=== PATIENT | male | born 1960 | race Caucasian/White ===

== ENCOUNTER 2022-04-15 07:13 | Outpatient (REF) | payer BC, SELFPAY ==
[2022-04-15 11:08] LABS: MANUAL DIFF FLAG NO
[2022-04-15 11:16] LABS: Basophils Percent Auto 0.9 % (0-2); Eosinophils Absolute Auto 0.1 X10*3/uL (0.0-0.4); Eosinophils Percent Auto 3.2 % (0-4); Hematocrit 46.9 % (42.0-52.0); Hemoglobin 15.5 g/dl (14.0-18.0); Imm Gran Abs Auto 0.01 X10*3/uL (0.00-0.03); Imm Gran Pct Auto 0.2 % (0.0-0.4); Lymphocytes Absolute Auto 1.3 X10*3/uL (1.2-4.9); Lymphocytes Percent Auto 29.4 % (20-40); Mean Corpuscular Hemoglobin 30.9 pg (27.0-33.0); Mean Corpuscular Volume 93.4 fL (80.0-98.0); Mean Platelet Volume 9.5 fL (9.4-12.4); Monocytes Absolute Auto 0.4 X10*3/uL (0.1-1.2); Monocytes Percent Auto 8.3 % (2-11); Neutrophils Absolute Auto 2.5 x10*3/uL (2.0-8.3); Platelet Count 248 X10*3/uL (160-400); Red Blood Count 5.02 X10*6/uL (4.60-5.80); Red Cell Distribution Width 12.9 % (11.0-16.0); White Blood Count 4.4 X10*3/uL (4.8-10.8)
[2022-04-15 11:36] LABS: Estimated Average Glucose 114 mg/dL; Hemoglobin A1C 151.9085 umol/L; Hemoglobin A1c % 5.6 %
[2022-04-15 11:49] LABS: Syphilis Screen Nonreactive (Nonreactive)
[2022-04-15 11:54] LABS: Alanine Aminotransferase 14 U/L (0-40); Albumin Level 4.1 g/dL (3.5-5.0); Alkaline Phosphatase 54 U/L (39-117); Anion Gap 15 (12-20); Aspartate Amino Transferase 17 U/L (5-37); Blood Urea Nitrogen 25 mg/dL (9-16); Calcium 8.6 mg/dL (8.4-10.2); Carbon Dioxide 21 mmol/L (22-29); Chloride 108 mmol/L (96-108); Cholesterol 203 mg/dL; Estimated Glomerular Filt Rate > 60; Glucose Fasting 116 mg/dL (60-99); HDL Cholesterol 55 mg/dL; LDL Cholesterol Calculated 133 mg/dl; Potassium 4.5 mmol/L (3.3-5.1); Sodium 139 mmol/L (135-145); Total Protein 6.8 g/dL (6.5-8.0); Triglycerides 79 mg/dL
[2022-04-15 12:01] LABS: HBS Num1 231.68 mIU/mL (0-7.99); HBc Num1 0.05 S/CO (0.00-0.79); HBsAGNum1 0.19 S/CO (0.00-0.99); HIV AB/AG Nonreactive (Nonreactive); HIV Num 1 0.12 S/CO (0.00-0.99); Hepatitis B Core Antibody Nonreactive (Nonreactive); Hepatitis B Surface Antigen Negative (Negative); Prostate Specific Antigen Scr 1.05 ng/mL (<0.05-4.0); TSH reflex Free T4 1.07 uIU/mL (0.32-4.0); ~HepC Num1 0.07 S/CO (0.00-0.79); ~Hepatitis B Surface Antibody REACTIVE (Nonreactive); ~Hepatitis C Antibody Nonreactive (Nonreactive)
== END 2022-04-15 07:14 | disposition home or self-care (01) ==
LOC: HO.WFDLDS 07:13
PROVIDERS: Visit Provider Family Medicine
DX: Z00.00 Encounter for general adult medical examination without abnormal findings (principal); Z12.5 Encounter for screening for malignant neoplasm of prostate; Z11.3 Encounter for screening for infections with a predominantly sexual mode of transmission; Z11.4 Encounter for screening for human immunodeficiency virus [HIV]; R73.01 Impaired fasting glucose
CPT/HCPCS: 36415; 80053; 80061; 83036; 84153; 84443; 85025; 86704; 86706; 86780; 86803; 87340; 87389

== ENCOUNTER → 2022-11-23 14:32 | Outpatient (BNVA) | payer BC, SELFPAY | PROVIDERS: PCP Family Medicine; Referring Provider Family Medicine; Visit Provider Internal Medicine | DX: R55 Syncope and collapse (principal) | CPT/HCPCS: 93005 ==

== ENCOUNTER 2022-12-14 09:49 | Outpatient (REF) | payer BC, SELFPAY ==
--- NOTE | ~2022-12-14 | CT_ITS ---
CT ANGIOGRAM NECK WITH IV CONTRAST CLINICAL INFORMATION: Occlusion and stenosis of the carotid arteries bilaterally. COMPARISON: None available. TECHNIQUE: Helical imaging was performed in the axial plane from the thoracic inlet to the base following the administration of 70 mL of Omnipaque 350 intravenous contrast without complication. The data was processed at the industrial technologist workstation for generation of MIP sequences. Angled MIPs and volume rendered reformatted images were also generated at an offline 3D workstation under concurrent supervision. Stenoses are assessed in accordance with NASCET criteria unless otherwise indicated. This CT examination was performed using dose optimization techniques as appropriate, variously including the following: *Automated exposure control *Adjustment of mA and/or kV according to patient size (this includes techniques or standardized protocols for targeted exams where dose is matched to indication/reason for exam; i.e. extremities or head) *Use of iterative reconstruction technique FINDINGS: Partially imaged likely partially calcified developmental venous anomaly involving the right basal ganglia incorporated into the right internal cerebral vein. A second area of enhancement within the right thalamus may reflect a DVA within associated capillary telangiectasia or other vascular malformation. A MRA of the head with and without IV contrast would be helpful in excluding the less likely possibility of an underlying high flow vascular malformation. There is multilevel cervical spondylosis. Imaged upper lungs are clear. No significant soft tissue findings within the neck. [There is a classic 3 vessel configuration of the aortic arch. Proximal arch vessels are non-stenotic. Left vertebral artery is dominant. No significant ostial stenosis is visualized on either side. Both vertebral arteries are widely patent throughout their extracranial cervical course. Both common carotid arteries are normal in course and caliber.] Mild atherosclerotic calcification involving the right carotid bulb. The proximal internal carotid arteries are widely patent. The distal internal carotid arteries are tortuous and remain widely patent. The intradural right vertebral artery ends as the PICA. CT/CT angio neck IMPRESSION: - Partially imaged likely partially calcified developmental venous anomaly involving the right basal ganglia incorporated into the right internal cerebral vein. A second area of enhancement within the right thalamus may reflect a DVA within associated capillary telangiectasia or other vascular malformation. A MRA of the head with and without IV contrast would be helpful in excluding the less likely possibility of an underlying high flow vascular malformation. - No significant arterial stenoses within the neck. The carotid bifurcations are widely patent.
[2022-12-14] MEDS: iohexoL 350 MG/ML 100 ML INFUS..BTL IV (10:29)
[2022-12-15 11:14] LABS: Creatinine POC 1.1 mg/dL (0.5-1.4); GFR POC > 60
== END 2022-12-14 09:50 | disposition home or self-care (01) ==
LOC: HO.CT 09:49
PROVIDERS: PCP Family Medicine; Visit Provider Internal Medicine
DX: I65.23 Occlusion and stenosis of bilateral carotid arteries (principal); R55 Syncope and collapse
CPT/HCPCS: 70498; 82565; Q9967

== ENCOUNTER 2023-11-02 10:58 | Outpatient (AMB) | payer BC, SELFPAY ==
[2023-11-02 11:00] VITALS: BP 140/82; PULSE 75; O2SAT 98
--- NOTE | 2023-11-02 11:00 | MHC.PC.OV ---
Vital Signs 11/02/23 11:00 Height 5 ft 9 in Weight 203 lb 2 oz BMI 30.0 BP 140/82 H Blood Pressure Location Lt brachial Position Sitting Pulse 75 Pulse Source Pulse Oximeter Pulse Oximetry (%) 98 Oxygen Delivery Method Room Air Intake Visit Reasons: PE Intake Note: Pt presents to the office today for a physical exam. Pt states he is having some right arm pain and tingling that started about a month ago but he states he did have issues with his right shoulder/arm in the past which he was diagnosed with a pinched nerve years ago. Allergies No Known Allergies Allergy (Verified 11/02/23 11:03) Tobacco use date assessed: 11/02/23 Dental Screening Dental Screen Date: 11/02/23 Did you have a dental visit in the last 12 months?: Yes Did you have a dental problem in the last 6 months where you did not have access to dental care?: No Was dental information given to patient?: Patient has dentist HPI PE HPI Details 62 y/o male presents today for a CPE with f/u labs and health maintenance. A1c today 11/02/23 is 6.0%. Pt has complaints of R arm pain and tingling. He denies any neck pain. Pt reports he is always walking for exercise. 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 1. Little interest or pleasure in doing things: not at all 2. Feeling down, depressed, or hopeless: not at all 3. Trouble falling or staying asleep, or sleeping too much: not at all 4. Feeling tired or having little energy: not at all 5. Poor appetite or overeating: not at all 6. Feeling bad about yourself - or that you are a failure or have let yourself or your family down: not at all 7. Trouble concentrating on things, such as reading the newspaper or watching television: not at all 8. Moving or speaking so slowly that other people could have noticed. Or the opposite - being so fidgety or restless that you have been moving around a lot more than usual: not at all 9. Thoughts that you would be better off or of hurting yourself in some way: not at all Total score: 0 Depression Screening Interpretation: Negative Depression Screening Done: Yes Source: Developed by Drs. Hemant Avilez, Earlene Thorne, Bhargav Banegas and colleagues, with an educational don from [employer]. Thrive Questionnaire Date Thrive assessed: 11/02/23 I am a: Patient What is your living situation today?: I have a steady place to live Within the past 12 months, did the food you bought not last and you didn't have the money to get more?: Never true Within the past 12 months, did you worry whether your food would run out before you got money to buy more?: Never true Do you have trouble paying for medicines?: No Do you have trouble getting transportation to medical appointments?: No Do you have trouble paying your heating and electricity bill?: No Do you have trouble taking care of your child, family member or friend?: No Do you have trouble with day-to-day activities such as bathing, preparing meals, shopping, managing finances, etc.?: No Are you currently unemployed and looking for a job?: No Are you interested in more education?: No THRIVE Score: 0 AUDIT C Alcohol Use Questionnaire (AUDIT-C) 1. How often do you have a drink containing alcohol?: 2-3 times a week 2. How many drinks containing alcohol do you have on a typical day when you are drinking?: 1 or 2 3. How often do you have six or more drinks on one occasion?: Never Total Score: 3 LEONARDO-7 AMB Questionnaire LEONARDO-7 Date LEONARDO - 7 assessed: 11/02/23 Feeling nervous, anxious, or on edge: 0 = Not at all Not being able to stop or control worryin = Not at all Worrying too much about different things: 0 = Not at all Trouble relaxin = Not at all Being so restless that it is hard to sit still: 0 = Not at all Becoming easily annoyed or irritable: 0 = Not at all Feeling afraid as if something awful might happen: 0 = Not at all Total LEONARDO-7 score (0-4 normal; 5-9 mild; 10-14 moderate; 15-21 severe): 0 Source: Developed by Drs. Hemant Avilez, Earlene Thorne, Bhargav Banegas and colleagues, with an educational don from [employer]. LEONARDO-7 Assessment Billing LEONARDO-7 Assessment Tool: LEONARDO-7 Assessment 03156 Review of Systems Const Denies chills, Denies fatigue, Denies fever(s), Denies headache(s) and Denies weakness Eyes Denies change in vision ENT Denies dizziness, Denies headache(s), Denies hearing loss, Denies nasal congestion, Denies sinus pain, Denies sinus pressure and Denies sore throat Card Denies chest pain, Denies lightheadedness, Denies dyspnea and Denies other (palpitations) Resp Denies cough, Denies dyspnea and Denies wheezing GI Denies abdominal pain, Denies melena, Denies hematochezia, Denies change in bowel habits, Denies dyspepsia and Denies nausea Denies hematuria and Denies dysuria Musc Denies abnormal gait, Denies myalgias, Denies arthralgias, Denies numbness and Denies tingling Skin/Breast Denies rash, Denies unusual bruising and Denies wounds Neuro Denies abnormal gait, Denies dizziness, Denies headache(s), Denies memory loss, Denies numbness, Denies Sensory deficit (Neuro), Denies tingling and Denies weakness Psych Denies anxiety, Denies depression and Denies memory loss Endo Denies cold intolerance, Denies fatigue, Denies heat intolerance, Denies polydipsia and Denies polyuria Raheel/Lymph Denies easy bleeding and Denies easy bruising Aller/Immun Denies wheezing Physical exam (Primary Care) Vital Signs: Last Vital Signs Pulse 75 11/02/23 11:00 BP 140/82 H 11/02/23 11:00 Pulse Ox 98 11/02/23 11:00 Oxygen Delivery Method Room Air 11/02/23 11:00 BMI result Body Mass Index 30.0 Tobacco/Smoking Status: Tobacco use Status Tobacco use date assessed 11/02/23 11/02/23 11:08 Patient Tobacco Use Status Never used Tobacco 11/02/23 11:08 e-Cigarette/Vaping Use Never Used 11/02/23 11:08 PHQ-9: PHQ-9 Score PHQ-9: Total score 0 11/02/23 11:08 Depression Screening Interpretation: Negative Thrive Assessment: Date of Thrive Assessment Date Thrive assessed 11/02/23 11/02/23 11:08 Const General: no acute distress, well developed, alert and awake Nutritional Appearance: well nourished Orientation/consciousness: patient oriented x3 HENMT Head: Yes normocephalic and Yes atraumatic Ears: hearing grossly normal bilaterally and TM's normal bilaterally General nose exam: Normal external nose present and Normal nares present Mouth: Normal oral and palatal mucosa present and moist mucous membranes Teeth and gingiva: dentition normal Throat: Yes posterior oropharynx normal Eyes General: appearance normal, both eyes and all related structures Pupils: Equal, round and reactive pupils present and Pupil accommodation reflex normal EOM: EOMs intact bilaterally Neck Neck: Yes normal visual inspection, Yes no lymphadenopathy and Yes trachea midline Thyroid: Thyroid normal Carotids: no bruits Lymphatic: no lymphadenopathy noted Chest Chest palpation & inspection: normal inspection of the chest Resp Effort & Inspection: normal respiratory effort Auscultation: clear to auscultation bilaterally Cardio Rate: regular rate Rhythm: regular rhythm Heart sounds: S1 normal heart sound present, S2 normal heart sound present, no gallops, no murmurs and no rubs Bruits: no abdominal aortic bruits and no carotid bruits GI Palpation (GI): No Abdominal aortic bruit present, Soft to palpation, nontender, No hepatosplenomegaly present and No Rebound tenderness present Auscultation: normal bowel sounds General: Yes no CVA tenderness Back/Spine/Pelvis Back: no CVA tenderness Cervical Spine: cervical ROM normal and No Cervical spine tenderness Thoracic/Lumbar Spine: thoraco-lumbar ROM normal, No pain with thoraco-lumbar ROM, No thoracic spinal tenderness and No lumbar spinal tenderness Skin Lesions: no lesions Rashes: no rashes Trauma: no lacerations or abrasions Wounds: no wounds Nails: normal Neuro General: patient oriented x3 Cranial nerves: Yes Equal, round and reactive pupils present Cognition (Neuro): normal cognition Gait exam (Neuro): Normal gait present Motor exam (neuro): 5/5 motor strength present throughout Sensory Exam: No Sensory deficit (Neuro) Deep tendon reflexes (DTR's): Right patellar reflex intensity grade: 2+ and Left patellar reflex intensity grade: 2+ Extrem General: Yes normal to inspection and No edema Psych Appearance: grossly normal Affect: normal affect Attitude: cooperative Thought process: Normal thought process present Results AMB Hemoglobin A1c AMB Hemoglobin A1c 6.0 % Last Edit by Kelsey Beatty MA on 11/02/23 11:23 Results Reviewed Results Reviewed: Laboratory Last Values Hgb A1c (Clinic) 6.0 % (4.0-6.0) 11/02/23 11:22 Assessment and Plan Assessment & Plan (1) Adult general medical exam: Code(s): Z00.00 - Encounter for general adult medical examination without abnormal findings Plan: 62-year-old?male?presents?for?a?complete?physical?exam Encouraged?active?lifestyle?and?healthy?diet (2) Right arm pain: Code(s): M79.601 - Pain in right arm Plan: Right?arm?pain?with?tingling?but?no?weakness Likely?strained?muscle?tendon?with?impingement?secondary?to?swelling?as?this?developed?over?a?few?days?after?injury. Use?ice,?NSAIDs,?physical?therapy. Patient?would?like?referral?to?Ortho.??He?can?cancel?this?if?he?is?improving. (3) Screening for colon cancer: Code(s): Z12.11 - Encounter for screening for malignant neoplasm of colon Plan: H/o polyps Colonosc 2-3 yrs ago and advised?to?follow-up?in?5?years?due?to?polyp Up-to-date Follow-up[facility]at[facility]as?recommended (4) Screening for prostate cancer: Code(s): Z12.5 - Encounter for screening for malignant neoplasm of prostate Plan: Check?PSA (5) Pre-syncope: Code(s): R55 - Syncope and collapse Plan: History?of?presyncope?and?also?has?tinnitus. CTA?imaging?of?brain?is?show?calcifications?and?possible?vascular?malformations Patient?would?like?a?referral?to?neurology-ordered Orders: Orders Lipid Panel Today Z00.00 - Encounter for general adult medical examination without abnormal findings UA and rflx microscopic Today Z00.00 - Encounter for general adult medical examination without abnormal findings TSH reflex Free T4 Today Z00.00 - Encounter for general adult medical examination without abnormal findings Prostate Specific Antigen Scr Today Z12.5 - Encounter for screening for malignant neoplasm of prostate PT Evaluation and Treatment Today M79.601 - Pain in right arm Comprehensive [place]. Panel Fast Today Z00.00 - Encounter for general adult medical examination without abnormal findings Microalbumin, Random (w Creat) Today I10 - Essential (primary) hypertension AMB Hemoglobin A1c Today R73.03 - Prediabetes Referrals Neurology Referral H93.19 - Tinnitus, unspecified ear, R55 - Syncope and collapse, R90.89 - Other abnormal findings on diagnostic imaging of central nervous system Orthopedics Referral M79.601 - Pain in right arm Medications: New naproxen 500 mg PO BID 30 days PRN 60 tabs 0RF pain M79.601 - Pain in right arm Coding Level of Care Code Est Pt Level 4 (00877) Est Pt Prev Care 40-64y(57223) Diagnoses Adult general medical exam Z00.00 Right arm pain M79.601 Screening for colon cancer Z12.11 Screening for prostate cancer Z12.5 Pre-syncope R55 Additional Codes LEONARDO-7 Assessment Billing - LEONARDO-7 Assessment Tool: LEONARDO-7 Assessment 82810 ([id number])
== END 2023-11-02 12:24 | disposition home or self-care (01) ==
PROVIDERS: PCP Family Medicine; Visit Provider Family Medicine
DX: Z00.00 Encounter for general adult medical examination without abnormal findings (principal); M79.601 Pain in right arm; R73.03 Prediabetes; R55 Syncope and collapse; Z12.11 Encounter for screening for malignant neoplasm of colon; Z12.5 Encounter for screening for malignant neoplasm of prostate
CPT/HCPCS: 83036; 99214; 99396

== ENCOUNTER 2023-11-16 07:11 | Outpatient (REF) | payer BC, SELFPAY ==
[2023-11-16 11:50] LABS: Appearance Urine Clear; Color Urine Yellow; Glucose Urine UA Negative (Negative); Leukocyte Esterase Urine Negative (Negative); Nitrite Urine Negative (Negative); Specific Gravity - Urine 1.015 (1.005-1.025); Urine Blood Negative (Negative); Urine Ketones Negative (Negative); Urine Protein Negative (Neg-Trace)
[2023-11-16 12:12] LABS: Alanine Aminotransferase 19 U/L (0-40); Albumin Level 4.3 g/dL (3.5-5.0); Alkaline Phosphatase 67 U/L (39-117); Anion Gap 12 (12-20); Aspartate Amino Transferase 19 U/L (5-37); Bilirubin Total 1.1 mg/dL (0.0-1.0); Blood Urea Nitrogen 22 mg/dL (9-16); Calcium 9.9 mg/dL (8.4-10.2); Carbon Dioxide 24 mmol/L (22-29); Chloride 107 mmol/L (96-108); Cholesterol 254 mg/dL (<200); Estimated Glomerular Filt Rate > 60; Glucose Fasting 110 mg/dL (60-99); Glucose Random 111 mg/dL (60-115); HDL Cholesterol 67 mg/dL (>40); LDL Cholesterol Calculated 167 mg/dL (<100); Potassium 4.3 mmol/L (3.3-5.1); Sodium 139 mmol/L (135-145); Total Protein 7.3 g/dL (6.5-8.0); Triglycerides 102 mg/dL (<150)
[2023-11-16 12:17] LABS: Prostate Specific Antigen Scr 0.85 ng/mL (<0.05-4.0)
[2023-11-16 12:19] LABS: Creatinine Urine 99.62 mg/dL
[2023-11-16 12:32] LABS: TSH reflex Free T4 1.44 uIU/mL (0.32-4.0)
== END 2023-11-16 07:12 | disposition home or self-care (01) ==
LOC: HO.WFDLDS 07:11
PROVIDERS: Internal Medicine; Visit Provider Family Medicine
DX: Z00.00 Encounter for general adult medical examination without abnormal findings (principal); Z12.5 Encounter for screening for malignant neoplasm of prostate; R55 Syncope and collapse; I10 Essential (primary) hypertension
CPT/HCPCS: 36415; 80048; 80053; 80061; 81003; 82043; 82570; 84153; 84443

== ENCOUNTER 2023-12-27 07:58 | Outpatient (REF) | payer BC, SELFPAY ==
--- NOTE | ~2023-12-27 | XR_ITS ---
EXAMINATION: XR CERVICAL SPINE CLINICAL INFORMATION: Cervicalgia. COMPARISON: None available. TECHNIQUE: Frontal, odontoid and lateral views of the cervical spine were obtained. FINDINGS: There is bony demineralization. At C5-C6 through C6-C7, there is moderate to marked disc space narrowing. The remaining disc spaces are relatively well-maintained. No acute fracture or spondylolisthesis is seen. There is multi-level mild to moderate anterior endplate arthropathy, most pronounced at C4-C5 and C5-C6. The posterior elements are intact. The dens is intact. No prevertebral soft tissue swelling is seen. XR/XR cervical spine 3V IMPRESSION: 1. There is moderately severe degenerative disc disease at C5-C6, C6-C7 and C7-T1. 2. There is multi-level mild to moderate anterior endplate arthropathy.
--- NOTE | ~2023-12-27 | XR_ITS ---
EXAMINATION: XR SHOULDER, RIGHT CLINICAL INFORMATION: Pain. COMPARISON: None available. TECHNIQUE: AP neutral and scapula Y views of the right shoulder are submitted. FINDINGS: There is bony demineralization. The glenohumeral joint is intact. The acromioclavicular and coracoclavicular intervals are normal. There is very mild osteoarthritic change of the acromioclavicular joint. No fracture or dislocation is seen. No soft tissue calcification or foreign body is seen. A sclerotic bone island is seen within the greater tuberosity of the proximal right humerus. No right pneumothorax is seen. XR/XR shoulder RT min 2V IMPRESSION: 1. No fracture or dislocation is seen. 2. There is very mild osteoarthritic change of the right glenohumeral joint.
== END 2023-12-27 07:59 | disposition home or self-care (01) ==
LOC: HO.HOSX 07:58
PROVIDERS: PCP Family Medicine; Visit Provider Physical Medicine & Rehabilitation
DX: M79.601 Pain in right arm (principal); M25.511 Pain in right shoulder; M54.2 Cervicalgia
CPT/HCPCS: 72040; 73030

== ENCOUNTER 2023-12-27 07:58 | Outpatient (AMB) | payer BC, SELFPAY ==
--- NOTE | 2023-12-27 08:17 | A.OFFVIS_ITS ---
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 Patient was getting up from a futon and he heard a pop in his right shoulder about 8 years ago. He states that his pain started about 3 - 4 months ago when he was getting up from laying down and he heard a pop. Patient reports his pain moves down and he feels a tingling/burning sensation as well. Patient tried and failed taking NSAIDs/Tylenil and icing. Allergies No Known Allergies Allergy (Verified 12/27/23 08:38) Medication List - Last Reconciled 12/27/23 by Gabrielle Austin MD atorvastatin 40 mg PO BEDTIME 90 days indomethacin 50 mg PO BID PRN naproxen 500 mg PO BID PRN 30 days sildenafil 100 mg PO DAILY PRN 30 days HPI HPI Comments History of Present Illness Details 4 months ago, was in bed, trying to turn arm, then heard a pop. Stayed the same. Feels like electric socket , zapping, down to thumb. Numb on right 2nd and 1st, feels itching also. Everything seems aggravate . Cannot identify alleviating symptom. On further questioning, he has noted frequent popping of right shoulder with physical activity/work. There is pain noted with shoulder inversion. Slightly better with abduction. History of CTS, though no EMG done in past. Noted when he sleeps. 8 years ago, similar issue, felt pop and fire on trapezius and arm. Was told pulled muscle but he didn't think so. It did eventually resolve on its own. 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 Denies neck issues per se. 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 Patient was appropriately conversant and oriented. Good historian. MSK: Inspection reveals appropriate head and neck positioning. No pain with palpation over the neck musculature. Cervical ROM was full. No scapular winging. Note that during exam, he maintained that the had constant electrical sensation from right shoulder to right thumb. Therefore all maneuvers done during exam, per patient, caused all positive signs: Spurling's sign, Castillo sign, empty can sign, Speed's test. Apprehension test is negative. Relocation test is negative. Bilateral shoulder, elbow and wrist ROM WNL. No ligamentous laxity or crepitance. No increased effusion. There is no increased shoulder pain with [id number]. Strength is 5/5 in all muscle groups tested. No increased tone noted. Neurological: Neurologic examination of the upper and lower extremities was nonfocal with intact sensation, muscle stretch reflexes and without focal motordeficits . Hoffma?s negative biaterally. Babinski wa down going ilateraly. Clonuswas negative]. Gait is non-antalgic without loss of balance. Results Reviewed Results Reviewed: No previous imaging done. Shoulder and cervical spine X-rays done in the office. Independently reviewed: cspine xray showed loss of lordosis and possibly decreased disc space C5-6. shoulder xray showed AC arthrosis, possible effusion. 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 No neurologic findings on exam. However rest of exam is equivocal, with any shoulder or neck maneuver causing the same symptom per patient. Sent for shoulder xray to look for DJD and cervical xray to look for disc space loss. Xray films reviewed as above. Concern for labral tear, given history of possible frequent shoulder subluxation. He has done his own exercises at home without much relief. He unfortunately cannot afford to go to PT due to his work hours. It would be reasonable to obtain shoulder arthrogram to rule out labral tear and guide prognosis and treatment. We also considered doing an EMG to rule out CTS vs radiculopathy. Note that his pain is mostly shoulder, not neck. Discussed with patient that shoulder pathologies would not cause numbness on fingers. Assessment and plan discussed with patient, and patient was agreeable. All questions were answered thoroughly. Follow up after MR arthrogram. Gabrielle Austin MD, HUMBERTO Board Certified, [place] Board [employer] and Rehabilitation (ABPMR) Board Certified, [place] Board [employer] Electrodiagnostic [employer] (ABEM) Orders: Orders XR shoulder RT min 2V Today M25.511 - Pain in right shoulder, M79.601 - Pain in right arm XR cervical spine 3V Today M25.511 - Pain in right shoulder, M54.2 - Cervicalgia, M79.601 - Pain in right arm MR shoulder RT w con Today M25.511 - Pain in right shoulder, M79.601 - Pain in right arm, S43.439A - Superior glenoid labrum lesion of unspecified shoulder, initial encounter Coding Level of Care Code New Pt Level 4 (22185) Diagnoses Right arm pain M79.601 Acute pain of right shoulder M25.511 Chronicity: acute Degenerative superior labral jldtepzz-bj-jefvnknov (SLAP) tear of shoulder S43.439A
== END 2023-12-27 09:26 | disposition home or self-care (01) ==
PROVIDERS: PCP Family Medicine; Referring Provider Family Medicine; Visit Provider Physical Medicine & Rehabilitation
DX: M79.601 Pain in right arm (principal); M25.511 Pain in right shoulder; S43.439A Superior glenoid labrum lesion of unspecified shoulder, initial encounter
CPT/HCPCS: 99204

== ENCOUNTER 2024-02-07 12:44 | Outpatient (REF) | payer BC, SELFPAY ==
--- NOTE | ~2024-02-07 | FL_ITS ---
FLUOROSCOPIC GUIDED RIGHT SHOULDER ARTHROGRAM INDICATIONS: Right shoulder pain. Intra-articular gadolinium injection is needed prior to MRI. PROCEDURE: Risks and benefits and possible complications were discussed with the patient and the consent form was signed. The patient was placed supine on the fluoroscopy table. The right shoulder was prepped and draped in normal sterile fashion. 1% buffered lidocaine was used for anesthesia. A 22-gauge spinal needle was used to access the shoulder joint. Intra-articular position of the needle within the shoulder joint was verified using 3 cc of Omnipaque 300. A total of 10 mL of gadolinium/saline (1:200) contrast mixture was then injected into the shoulder joint. The needle was then removed and a Band-Aid was applied to the injection site. The patient tolerated the procedure well and was sent to MRI. There were no immediate complications. 2 spot images obtained demonstrate no evidence of full-thickness rotator cuff tear. Moderate arthritic changes present in the AC joint, and minimal arthritic changes present in the glenohumeral joint. There is a small amount of calcification of the posterior infraspinatus tendon at the greater tuberosity. No significant subacromial narrowing. FL/FL arthrogram shoulder RT IMPRESSION: Successful fluoroscopic guided intra-articular instillation of dilute gadolinium into the right shoulder joint. Patient will undergo subsequent right shoulder MRI. The procedure was performed by alexa Martin PA-C, and directly supervised by Dr. Ardon.
--- NOTE | ~2024-02-07 | MR_ITS ---
EXAMINATION: MR SHOULDER WITH CONTRAST, RIGHT CLINICAL INFORMATION: Right shoulder pain. Evaluate for a labral tear, rotator cuff tendon tear. COMPARISON: Right shoulder radiographs dated 12/27/2023 and fluoroscopic arthrography done earlier the same day. TECHNIQUE: MRI of the shoulder was performed following the intra-articular administration of a dilute gadolinium-containing solution (arthrogram) on a high-field scanner. FINDINGS: ROTATOR CUFF: Moderate supraspinatus and infraspinatus tendinosis. Articular surface partial tearing of the junctional fibers measuring approximately 1.2 cm in ML dimension. No full-thickness rotator cuff tendon tear. No muscle atrophy or fatty infiltration. BICEPS: Intact. CORACOACROMIAL ARCH: The undersurface of the acromion is flat with small subacromial spurs. Severe acromioclavicular osteoarthritis with a small joint effusion. LABRUM/CAPSULE: Linear contrast within the undersurface of the superior and posterosuperior labrum, consistent with a nondisplaced undersurface tear. Intact inferior joint capsule. GLENOHUMERAL JOINT/MARROW: Intact articular cartilage. No acute osseous injury. MR/MR shoulder RT w con IMPRESSION: 1. Moderate supraspinatus and infraspinatus tendinosis with articular surface partial tearing of the junctional fibers measuring 1.2 cm in ML dimension. No full-thickness rotator cuff tendon tear. 2. Severe acromioclavicular osteoarthritis with a small joint effusion and small subacromial spurs. 3. Nondisplaced undersurface tear of the superior and posterosuperior labrum.
[2024-02-07] MEDS: gadobutroL 2 ML VIAL IVPUSH (15:07)
== END 2024-02-07 12:45 | disposition home or self-care (01) ==
LOC: HO.XRAY 12:44
PROVIDERS: PCP Family Medicine; Visit Provider Physical Medicine & Rehabilitation
DX: M25.511 Pain in right shoulder (principal); M79.601 Pain in right arm; S43.439A Superior glenoid labrum lesion of unspecified shoulder, initial encounter
CPT/HCPCS: 23350; 73040; 73222; A9585

== ENCOUNTER → 2024-02-07 12:56 | Outpatient (BNV) | payer BC, SELFPAY | PROVIDERS: PCP Family Medicine; Visit Provider Physician Assistant Surgical | DX: M25.511 Pain in right shoulder (principal) | CPT/HCPCS: 23350; 73040 ==

== ENCOUNTER 2024-03-07 11:12 | Outpatient (AMB) | payer BC, SELFPAY ==
--- NOTE | 2024-03-07 11:18 | MHC.OFFVIS ---
Intake Visit Reasons: N/P Right RTC & Labral Tear Intake Note: James is a 63 year old right hand dominant male who presents today as a new patient for a evaluation for his right shoulder pain. Patient was getting up from a futon and he heard a pop in his right shoulder about 8 years ago. He states that his pain started about 3 - 4 months ago when he was getting up from laying down and he heard a pop. Patient reports his pain moves down and he feels a tingling/burning sensation as well. Patient tried and failed taking NSAIDs/Tylenol and icing. Allergies No Known Allergies Allergy (Verified 12/27/23 08:38) HPI HPI N/P Right RTC & Labral Tear: Details: James is a 63 year old right hand dominant male who presents today as a new patient for a evaluation for his right shoulder pain. Patient was getting up from a futon and he heard a pop in his right shoulder about 8 years ago. He states that his pain started about 3 - 4 months ago when he was getting up from laying down and he heard a pop. Patient reports his pain moves down and he feels a tingling/burning sensation as well. Patient tried and failed taking NSAIDs/Tylenol and icing. Patient has had symptoms such as this about a years ago. He endorses this ?nerve pain?. He describes burning and tingling extending from his anteromedial arm down into his radial arm and the radial dorsal aspect of his right hand. He denies pain. He is curious about his MRI. 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 Current occupational exposures/hazards: No Cognitive needs: No Hearing needs: No Vision needs: No Physical Exam Const General: cooperative, healthy appearing, no acute distress and well groomed Orientation/consciousness: oriented to person and oriented to place HEENT Head: Yes normal to inspection, Yes normocephalic and Yes atraumatic Eyes General: appearance normal, both eyes and all related structures Alignment and Position: alignment normal Conjunctivae: conjunctivae normal EOM: EOMs intact bilaterally Neck Neck: Yes normal visual inspection and Yes trachea midline Resp Other: No rerpiratory distress Effort & Inspection: normal respiratory effort and able to speak in complete sentences GI Other: No abdominal distension Back/Spine/Pelvis Cervical Spine: normal cervical lordosis and cervical ROM normal Skin General skin exam: no rashes or lesions noted Neuro General: oriented to person, oriented to place and gait normal Extrem Other: Right shoulder with full range of motion. All provocative tests are negative I can not reproduce pain with active and passive motion or provocative testing. Negative Spurling's 5/5 muscle strength upper extremities Results Reviewed Results Reviewed: I personally reviewed the MR images. IMPRESSION: 1. Moderate supraspinatus and infraspinatus tendinosis with articular surface partial tearing of the junctional fibers measuring 1.2 cm in ML dimension. No full-thickness rotator cuff tendon tear. 2. Severe acromioclavicular osteoarthritis with a small joint effusion and small subacromial spurs. 3. Nondisplaced undersurface tear of the superior and posterosuperior labrum. Allergies Assessment & Plan Assessment & Plan (1) Cervical radiculopathy: Code(s): M54.12 - Radiculopathy, cervical region Category: Medical Plan: This is a 63-year-old gentleman with right arm tingling and burning with an MRI showing AC joint arthritis and rotator cuff tendinosis. His shoulder exam is completely benign. His symptoms reflect cervical radiculopathy and there is no evidence of shoulder pathology. I recommend MRI of the cervical spine. Orders: Orders MR cervical spine wo con Today M54.12 - Radiculopathy, cervical region Coding Level of Care Code New Pt Level 4 (41221) Diagnoses Cervical radiculopathy M54.12
== END 2024-03-07 16:07 | disposition home or self-care (01) ==
PROVIDERS: PCP Family Medicine; Visit Provider Orthopaedic Surgery
DX: M54.12 Radiculopathy, cervical region (principal)
CPT/HCPCS: 99204

== ENCOUNTER → 2024-03-07 11:12 | Outpatient (BNVA) | payer BC, SELFPAY | PROVIDERS: PCP Family Medicine; Visit Provider Orthopaedic Surgery ==

== ENCOUNTER 2024-06-11 10:38 | Outpatient (AMB) | payer BC, SELFPAY ==
--- NOTE | 2024-06-11 11:55 | A.OFFPC_ITS ---
Vital Signs 06/11/24 11:57 Height 5 ft 9 in Weight 202 lb 2 oz BMI 29.8 BP 110/70 Blood Pressure Location Lt brachial Position Sitting Respiration 16 Pulse 61 Pulse Source Pulse Oximeter Temp 97.5 F Temp Source Tympanic Pulse Oximetry (%) 100 Oxygen Delivery Method Room Air Intake Visit Reasons: med review Intake Note: med review Allergies No Known Allergies Allergy (Verified 06/11/24 11:55) Medication List - Last Reconciled 06/11/24 by Perez Sharif MD indomethacin 50 mg PO BID PRN naproxen 500 mg PO BID PRN 30 days sildenafil 100 mg PO DAILY PRN 30 days Tobacco use date assessed: 12/14/23 Dental Screening Dental Screen Date: 12/14/23 HPI med review HPI Details 63 y/o male presents to f/u chronic [facility] itions. Saw Dr. Tamayo orthopedics 03/07/24 for R shoulder pain. MRI showed AC joint arthritis and rotator cuff tendinosis. Shoulder exam was benign. Symptoms reflected cervical radiculopathy and had recommended MRI of cervical spine. Lipids had been high from labs drawn in October - TC 254, LDL 167, HDL 67. Hx of carotid atherosclerosis and had started him on artovastatin 40mg daily. Pt had stopped artovastatin. Had referred pt to Neurology due to presyncope. Has complaints of fungal infection of skin. 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 Hematn Avilez, Earlene Thorne, Bhargav Banegas and colleagues, with an educational don from [employer]. Review of Systems Const Denies chills, Denies fatigue, Denies fever(s), Denies headache(s) and Denies weakness ENT Denies dizziness and Denies headache(s) Card Denies dyspnea Resp Denies cough, Denies dyspnea, Denies wheezing and Denies other (shortness of breath) Musc Denies numbness and Denies tingling Neuro Denies dizziness, Denies headache(s), Denies numbness, Denies tingling and Denies weakness Psych Denies anxiety and Denies depression Endo Denies fatigue Aller/Immun Denies wheezing Physical exam (Primary Care) Vital Signs: Last Vital Signs Temp 97.5 F 06/11/24 11:57 Pulse 61 06/11/24 11:57 Resp 16 06/11/24 11:57 BP 110/70 06/11/24 11:57 Pulse Ox 100 06/11/24 11:57 Oxygen Delivery Method Room Air 06/11/24 11:57 BMI result Body Mass Index 29.8 Tobacco/Smoking Status: Tobacco use Status Tobacco use date assessed 12/14/23 06/11/24 12:00 Patient Tobacco Use Status Never used Tobacco 06/11/24 12:00 e-Cigarette/Vaping Use Never Used 06/11/24 12:00 Thrive Assessment: Date of Thrive Assessment Date Thrive assessed 11/02/23 06/11/24 12:00 Const General: well developed; No acute distress Nutritional Appearance: well nourished Orientation/consciousness: patient oriented x3 [facility] Head: Yes normocephalic and Yes atraumatic Eyes General: appearance normal, both eyes and all related structures Pupils: Equal, round and reactive pupils present EOM: EOMs intact bilaterally Resp Effort & Inspection: normal respiratory effort Auscultation: clear to auscultation bilaterally Cardio Rate: regular rate Rhythm: regular rhythm Heart sounds: S1 normal heart sound present, S2 normal heart sound present, no gallops, no murmurs and no rubs Neuro General: patient oriented x3 and gait normal Cranial nerves: Yes Equal, round and reactive pupils present Psych Affect: normal affect Assessment and Plan Assessment & Plan (1) Pre-syncope: Code(s): R55 - Syncope and collapse Plan: Had?referred?patient?to?Neurology?and?cardiology. Cardiology?ordered?CTA?head?and?neck No?significant?stenoses?of?carotid?or?basilar?system?but?did?note intracerebral?deficits - see?below (2) Right shoulder pain: Code(s): M25.511 - Pain in right shoulder Qualifiers: Chronicity: acute Qualified Code(s): M25.511 - Pain in right shoulder Plan: Right?shoulder?pain?with?right?arm?paresthesia MRI?of?shoulder?joint?shows?osteoarthritis?but?no?explanation?for?paresthesias However,?CTA?shows?some?intracerebral?abnormalities?including?in?the?thalamus (though?appears?to?be?right?thalamus?which?would?result?in?a?left- sided?symptoms). Had?referred?patient?to?Neurology?and?also?vascular?surgery (3) Paresthesia of right arm: Code(s): R20.2 - Paresthesia of skin Plan: As?above (4) Hyperlipidemia: Code(s): E78.5 - Hyperlipidemia, unspecified Plan: History?of?hyperlipidemia?and CTA?shows?intracerebral?vascular?deficits Had?started?patient?on?a?statin?but?patient?has?stopped Will?try?pravastatin?and?hopefully?he?will?tolerate?this. Also?discuss?that?we?could?try?Zetia?though?it?tends?to?not?be?as?strong?as?stat in?medications. Also?discussed?we?could?try?a?combination?of?the?two. 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 A second area of enhancement within the right thalamus may reflect a DVA within associated capillary telangiectasia or other vascular malformation. A MRA of the head with and without IV contrast would be helpful in excluding the less likely possibility of an underlying high flow vascular malformation. Coding Level of Care Code Est Pt Level 4 (52381) Diagnoses Pre-syncope R55 Acute pain of right shoulder M25.511 Chronicity: acute Paresthesia of right arm R20.2 Hyperlipidemia E78.5 Fungal infection of skin B36.9
[2024-06-11 11:57] VITALS: BP 110/70; PULSE 61; RESP 16; TEMP 36.4; O2SAT 100; BMI 29.8
== END 2024-06-11 12:57 | disposition home or self-care (01) ==
PROVIDERS: PCP Family Medicine; Visit Provider Family Medicine
DX: R55 Syncope and collapse (principal); M25.511 Pain in right shoulder; R20.2 Paresthesia of skin; E78.5 Hyperlipidemia, unspecified; B36.9 Superficial mycosis, unspecified

== ENCOUNTER → 2024-06-11 10:38 | Outpatient (BNVA) | payer BC, SELFPAY | PROVIDERS: PCP Family Medicine; Visit Provider Family Medicine | DX: R55 Syncope and collapse (principal); M25.511 Pain in right shoulder; R20.2 Paresthesia of skin; E78.5 Hyperlipidemia, unspecified; B36.9 Superficial mycosis, unspecified ==

== ENCOUNTER 2025-04-18 12:52 | Outpatient (AMB) | payer BC, SELFPAY ==
--- NOTE | 2025-04-18 12:54 | A.OFFPC_ITS ---
Vital Signs 04/18/25 12:59 Height 5 ft 9 in Weight 196 lb 4 oz BMI 29.0 BP 140/78 H Blood Pressure Location Lt brachial Position Sitting Respiration 13 Pulse 86 Pulse Source Pulse Oximeter Temp 97.5 F Temp Source Oral Pulse Oximetry (%) 96 Oxygen Delivery Method Room Air Intake Visit Reasons: Hand puncture Intake Note: Patient here for a tetanus shot. 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 Allergies No Known Allergies Allergy (Verified 04/18/25 13:21) Medication List - Last Reconciled 04/18/25 by TYLER Carolina-VALDO indomethacin 50 mg PO BID PRN 30 days naproxen 500 mg PO BID PRN 30 days pravastatin 20 mg PO BEDTIME 90 days sildenafil 100 mg PO DAILY PRN 30 days terbinafine HCl 1% (Antifungal (terbinafine)) 1 appl topical BID 14 days Tobacco use date assessed: 04/18/25 Dental Screening Dental Screen Date: 04/18/25 Did you have a dental visit in the last 12 months?: Yes Did you have a dental problem in the last 6 months where you did not have access to dental care?: No Was dental information given to patient?: Patient has dentist HPI HPI Comments History of Present Illness Details History of Present Illness - The patient is a 64-year-old male pres enting with tetanus vaccination status update following a L hand injury. - Hand puncture injury occurred earlier this week with no significant bleeding. - Landed on reciept ratliff; caused break in skin but no other injury. - Tetanus immunization last updated in . - No current impairment of hand function or notable symptoms. - No fever, chills, or signs of infectio n reported. Review of Systems - Musculoskeletal: Denies impairment of hand function. - Immunological: Reports overdue for tet anus vaccination. Physical Exam L palmar surface scabbed superficial puncture wound w/o infection. L hand neurovasc intact. Discussion Notes During the consultation, I discussed with the patient the need for updating his tetanus vaccination, given that his last vaccination was over 10 years ago, in 2011. The importance of receiving the tetanus booster was emphasized to maintain immunity, particularly given his recent hand injury with potential exposure to the bacterium. I informed him of the expected brief discomfort associated with the injection. T he recommendation was to administer the vaccine in his dominant arm to facilitate dispersion of the medication through muscle movement, minimizing soreness. Follow-up with his regular physician, Dr. Jimenez, was confirmed for annual check-ups. Patient was given time to ask questions. All questions were answered to their satisfaction. Assessment and Plan 1. Hand injury: - Administer tdap today - RTO edu provided. Patient Instructions - Receive the tetanus booster shot in yo ur right arm today. - Move your arm around to help the medic ine work and reduce soreness. - Keep track of future injuries and upda te vaccinations as needed. - Continue annual check-ups with Dr. Jimenez. Consent Patient was informed and verbally consented to the use of an ambient scribe for clinic note documentation during this visit. 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 1. Little interest or pleasure in doing things: not at all 2. Feeling down, depressed, or hopeless: not at all 3. Trouble falling or staying asleep, or sleeping too much: not at all 4. Feeling tired or having little energy: not at all 5. Poor appetite or overeating: not at all 6. Feeling bad about yourself - or that you are a failure or have let yourself or your family down: not at all 7. Trouble concentrating on things, such as reading the newspaper or watching television: not at all 8. Moving or speaking so slowly that other people could have noticed. Or the opposite - being so fidgety or restless that you have been moving around a lot more than usual: not at all 9. Thoughts that you would be better off or of hurting yourself in some way: not at all Total score: 0 Depression Screening Interpretation: Negative Depression Screening Done: Yes 23466 - PHQ-9 Billing: Yes Source: Developed by Drs. Hemant Avilez, Earlene Thorne, Bhargav Banegas and colleagues, with an educational don from [employer]. Thrive Questionnaire Date Thrive assessed: 04/18/25 I am a: Patient What is your living situation today?: I have a steady place to live Within the past 12 months, did the food you bought not last and you didn't have the money to get more?: Never true Within the past 12 months, did you worry whether your food would run out before you got money to buy more?: Never true Do you have trouble paying for medicines?: No Do you have trouble getting transportation to medical appointments?: No Do you have trouble paying your heating and electricity bill?: No Do you have trouble taking care of your child, family member or friend?: No Do you have trouble with day-to-day activities such as bathing, preparing meals, shopping, managing finances, etc.?: No Are you currently unemployed and looking for a job?: No Are you interested in more education?: No THRIVE Score: 0 AUDIT C Alcohol Use Questionnaire (AUDIT-C) 1. How often do you have a drink containing alcohol?: Never 3. How often do you have six or more drinks on one occasion?: Never Total Score: 0 Score Reviewed/Action Taken: Yes LEONARDO-7 AMB Questionnaire LEONARDO-7 Date LEONARDO - 7 assessed: 04/18/25 Feeling nervous, anxious, or on edge: 0 = Not at all Not being able to stop or control worryin = Not at all Worrying too much about different things: 0 = Not at all Trouble relaxin = Not at all Being so restless that it is hard to sit still: 0 = Not at all Becoming easily annoyed or irritable: 0 = Not at all Feeling afraid as if something awful might happen: 0 = Not at all Total LEONARDO-7 score (0-4 normal; 5-9 mild; 10-14 moderate; 15-21 severe): 0 Source: Developed by Drs. Hemant Avilez, Earlene Thorne, Bhargav Banegas and colleagues, with an educational don from [employer]. LEONARDO-7 Assessment Billing LEONARDO-7 Assessment Tool: LEONARDO-7 Assessment 20144 Physical exam (Primary Care) Vital Signs: Last Vital Signs Temp 97.5 F 04/18/25 12:59 Pulse 86 04/18/25 12:59 Resp 13 04/18/25 12:59 BP 140/78 H 04/18/25 12:59 Pulse Ox 96 04/18/25 12:59 Oxygen Delivery Method Room Air 04/18/25 12:59 BMI result Body Mass Index 29.0 Tobacco/Smoking Status: Tobacco use Status Tobacco use date assessed 04/18/25 04/18/25 13:00 Patient Tobacco Use Status Never used Tobacco 04/18/25 13:00 e-Cigarette/Vaping Use Never Used 04/18/25 13:00 PHQ-9: PHQ-9 Score PHQ-9: Total score 0 04/18/25 13:27 Depression Screening Interpretation: Negative Thrive Assessment: Date of Thrive Assessment Date Thrive assessed 04/18/25 04/18/25 13:00 Immunizations Boostrix Tdap 2.5 Lf unit-8 mcg-5 Lf/0.5 mL intramuscular syringe Performing Provider: RUFUS [place] [facility] Administered by: Marilee Rich MA on 04/18/25 13:32 Dose Route Admin Location Dispensed Lot Number Expiration Date [facility] Accident Investigator 0.5 mL IM Right Deltoid 0.5 mL [id number] 11/08/26 76774-053-21 [employer] Total Dispensed Waste 0.5 mL 0 % VIS Given Date VIS Provided VIS Publication Date 04/18/25 Single Vaccine 21 Eligibility Eligibility Date Funding Source Not [facility] [place] Eligible 04/18/25 Private Coding Level of Care Code Est Pt Level 3 (47342) Complex EM visit Add On G2211 Diagnoses Need for Tdap vaccination Z23 Injury of left hand, initial encounter S69.92XA Encounter type: initial encounter Laterality: left Additional Codes LEONARDO-7 Assessment Billing - LEONARDO-7 Assessment Tool: LEONARDO-7 Assessment [id number] ([id number]) PHQ-9 - 67845 - PHQ-9 Billing: Yes ([id number]) Assessment & Plan Assessment & Plan (1) Need for Tdap vaccination: Code(s): Z23 - Encounter for immunization Category: Medical (2) Hand injury: Code(s): S69.90XA - Unspecified injury of unspecified wrist, hand and finger(s), initial encounter Qualifiers: Encounter type: initial encounter Laterality: left Qualified Code(s): S69.92XA - Unspecified injury of left wrist, hand and finger(s), initial encounter Plan . Orders: Orders TDaP Immunization Today Z23 - Encounter for immunization
--- OUTSIDE RECORDS SUMMARY | 2025-04-18 12:54 | XMS_ITS | Encounter Summary ---
Author Organization [facility] Address [address] [facility] [address] [place] [address] Phone Care Team Providers Care Key Account Director Name Role Phone Anibal Barrow MD Primary Care Provider [phone] Anibal Barrow MD Unavailable [phone] Daniel Yeager MD Primary Care Provider [phone] Encounter Details Date Type Department Care Team (Late st Contact Info) Description 10/11/2019 Documentation [facility] [place] Internal Medicine [address] [place] [address] Jose Guadalupe Armstrong [place] [address] [place] [address] Social History Tobacco Use Types Packs/Day Years Used Date Smoking Tobacco: Never Assessed Sex and Gender Information Value Date Recorded Sex Assigned at Not on file Legal Sex Male 9:46 PM EDT Gender Identity Not on file Sexual Orientation Not on file documented as of this encounter Plan of Treatment Not on file documented as of this encounter Procedures Procedure Name Priority Date/Time Associated Diagnosis Comments OUTSIDE TRIGLYCERIDES Routine 02/16/2017 OUTSIDE LDL Routine 02/16/2017 OUTSIDE TOTAL CHOLESTEROL Routine 02/16/2017 OUTSIDE HDL Routine 02/16/2017 documented in this encounter Results * Outside LDL (02/16/2017) LDL - External 178 50 - 250 mg/ml us Historical Provider LAB BLOOD ORDERABLES Mia l Result * (ABNORMAL) Outside Total Cholesterol (02/16/2017) Cholesterol, total - External 266(A) 0 - 240 mg/dL Result [facility] Provider MD LAB BLOOD ORDERABLES Mia l Result * Outside HDL (02/16/2017) HDL - External 58 40 - 80 mg/dL Result [facility] Provider MD LAB BLOOD ORDERABLES Mia l Result * Outside Triglycerides (02/16/2017) Triglycerides - External 148 30 - 160 mg/dL Result [facility] Provider MD LAB BLOOD ORDERABLES Mia l Result documented in this encounter Visit Diagnoses Not on filedocumented in this encounter Additional Health Concerns Infection Onset Date Last Indicated Resolved Time CoV-Risk 10/04/2021 10/05/2021 10/06/2021 8:35 PM EST COVID-19 10/05/2021 10/05/2021 10/26/2021 1:22 AM EST documented as of this encounter Care Teams Key Account Director Relationship Specialty Start Date End Date Anibal Barrow MD [address] [address] [email or web address] PCP - General Internal Medicine 08/14/17 08/17/22 Daniel Yeager MD [address] [address] [email or web address] PCP - General Family Medicine 08/18/22 Anibal Barrow MD [address] [address] [email or web address] Insurance Assigned Provider 10/18/19 04/23/22 documented as of this encounter Additional Source Comments The information contained in this document represents components of the legal health record. It is not the complete legal health record.[facility]
--- OUTSIDE RECORDS SUMMARY | 2025-04-18 12:54 | XMS_ITS | Clinical Summary ---
Author Organization [employer] Address [address] [facility] 7[address] [place] [address] Care Team Providers Care Outreach Professional Name Role Phone Perez Sharif Primary Care Provider [phone] Allergies No known active allergies Medications indomethacin (Indocin) 50 MG capsule Take 50 mg by mouth with breakfast and with evening meal. Active Active Problems Problem Noted Date Diagnosed Date Hyperlipidemia 10/14/2019 Immunizations Immunization Administration Dates Next Due Tdap 01/06/2012 Social History Tobacco Use Types Packs/Day Years Used Date Smoking Tobacco: Former Cigarettes Smokeless Tobacco: Never Tobacco Cessation:Counseling Given: Not Answered Sex and Gender Information Value Date Recorded Sex Assigned at Male 02/19/2024 10:04 AM EDT Legal Sex Male 10:02 AM EDT Gender Identity Male 02/19/2024 10:04 AM EDT Sexual Orientation Don't know 02/19/2024 10 :04 AM EDT Last Filed Vital Signs Vital Sign Reading Time Taken Comments Blood Pressure 130/78 02/19/2024 12:13 PM EDT Pulse 88 02/19/2024 12:13 PM EDT Temperature - - Respiratory Rate 19 02/19/2024 12:13 PM EDT Oxygen Saturation 96% 02/19/2024 12:13 PM EDT Inhaled Oxygen Concentration - - Weight 90.7 kg (200 lb) 02/19/2024 12:13 PM EDT Height 177.8 cm (5' 10 ) 02/19/2024 12:13 PM EDT Body Mass Index 28.7 02/19/2024 12:13 PM EDT Plan of Treatment Health Maintenance Due Date Last Done Comments CT Colonography 1961 Colonoscopy 1961 Colorectal Cancer Screening 1961 Depression Screening 1961 FIT DNA/Cologuard 1961 FIT 1961 FOBT 1961 HIV Screening 1961 SDOH Screening 1961 Sigmoidoscopy 1961 Disability Screening 1961 Alcohol/Substance Use Screening 1973 Pneumococcal Vaccine: 50+ Years (1 of 1 - PCV) 12/04/2011 Zoster Vaccines (1 of 2) 12/04/2011 DTaP/Tdap/Td Vaccines (2 - T d or Tdap) 01/05/2022 01/06/2012 COVID-19 Vaccine (3 - 2023-2 5 season) 2024 01/13/2021, 11/28/2020 Tobacco Screening 02/18/2025 02/19/2024 Influenza Vaccine (#1) 2025 Lipid Panel 08/25/2026 08/25/2021 RSV Patients and Patients Aged 60 years or older (1 - 1-dose 75+ series) 2036 Hepatitis C Screening Completed 10/24/2019 HIB Vaccines Aged Out No longer eligi ble based on patient's age to complete this topic HPV Vaccines Aged Out No longer eligi ble based on patient's age to complete this topic Hepatitis A Vaccines Aged Out No long er eligible based on patient's age to complete this topic Hepatitis B Vaccines Aged Out No long er eligible based on patient's age to complete this topic IPV Vaccines Aged Out No longer eligi ble based on patient's age to complete this topic Meningococcal B Vaccine Aged Out No l onger eligible based on patient's age to complete this topic Meningococcal Vaccine Aged Out No jus latoya eligible based on patient's age to complete this topic RSV under 20 months Aged Out No longe r eligible based on patient's age to complete this topic Rotavirus Vaccines Aged Out No longer eligible based on patient's age to complete this topic Insurance BS HMO Care Teams Outreach Professional Relationship Specialty Start Date End Date Perez Sharif [address] [place], [place] [id number] PCP - General 02/19/24
[2025-04-18 12:59] VITALS: BP 140/78; PULSE 86; RESP 13; TEMP 36.4; O2SAT 96; BMI 29.0
== END 2025-04-18 15:25 | disposition home or self-care (01) ==
LOC: HO.HMCFM 12:52
PROVIDERS: PCP Family Medicine; Visit Provider Nurse Practitioner Family
DX: Z23 Encounter for immunization (principal); S69.92XA Unspecified injury of left wrist, hand and finger(s), initial encounter

== ENCOUNTER → 2025-04-18 12:52 | Outpatient (BNVA) | payer BC, SELFPAY | PROVIDERS: PCP Family Medicine; Visit Provider Nurse Practitioner Family | DX: S61.432A Puncture wound without foreign body of left hand, initial encounter (principal); Z23 Encounter for immunization; W26.8XXA Contact with other sharp object(s), not elsewhere classified, initial encounter; Y93.9 Activity, unspecified; Y92.9 Unspecified place or not applicable; Y99.9 Unspecified external cause status; Z13.31 Encounter for screening for depression; Z13.39 Encounter for screening examination for other mental health and behavioral disorders | CPT/HCPCS: 90471; 90715; 96127 ==

== ENCOUNTER 2025-09-05 10:17 | Outpatient (REF) | payer BC, SELFPAY ==
--- OUTSIDE RECORDS SUMMARY | 2025-09-05 13:09 | XMS_ITS | Encounter Summary ---
Author Organization [facility] Address [address] [facility] [address] [place] [address] Phone Care Team Providers Care Funeral Assistant Name Role Phone Anibal Barrow MD Primary Care Provider [phone] Anibal Barrow MD Unavailable [phone] Daniel Yeager MD Primary Care Provider [phone] Encounter Details Date Type Department Care Team (Late st Contact Info) Description 10/11/2019 Documentation [facility] [address] [place] [address] Jose Guadalupe ArmstrongMINDEN, [place] [address] [place] [address] Social History Tobacco Use Types Packs/Day Years [...] 50 - 250 mg/ml us Historical Provider MD LAB BLOOD ORDERABLES Mia l Result * (ABNORMAL) Outside Total Cholesterol (02/16/2017) Cholesterol, total - External 266(A) 0 - 240 mg/dL Result [facility] Provider MD LAB BLOOD ORDERABLES Mia l Result * Outside HDL (02/16/2017) HDL - External 58 40 - 80 mg/dL Result [facility] Provider MD LAB BLOOD ORDERABLES Mia l Result * Outside Triglycerides (02/16/2017) Triglycerides - External 148 30 - 160 mg/dL Result [facility] Provider MD LAB BLOOD ORDERABLES Mia l Result documented in this encounter Visit Diagnoses Not on filedocumented in this encounter Additional Health Concerns Infection Onset Date Last Indicated Resolved Time CoV-Risk 10/04/2021 10/05/2021 10/06/2021 8:35 PM EST COVID-19 10/05/2021 10/05/2021 10/26/2021 1:22 AM EST documented as of this encounter Care Teams Funeral Assistant Relationship Specialty Start Date End Date Anibal Barrow MD [address] [place] [id number] [email or web address] PCP - General Internal Medicine 08/14/17 08/17/22 Daniel Yeager MD [address] [address] [email or web address] PCP - General Family Medicine 08/18/22 Anibal Barrow MD [address] [address] [email or web address] Insurance Assigned Provider 10/18/19 04/23/22 documented as of this encounter Additional Source Comments The information contained in this document represents components of the legal health record. It is not the complete legal health record.[facility]
--- OUTSIDE RECORDS SUMMARY | 2025-09-05 13:10 | XMS_ITS | Encounter Summary ---
Author Organization [facility] Address [address] [place] [address] Phone Care Team Providers Care Awake Overnight Monitor Name Role Phone Pcp, Unknown Primary Care Provider Anibal Cross MD Primary Care Provider [phone] Anibal Barrow MD Unavailable [phone] Daniel Yeager MD Primary Care Provider Encounter Details Date Type Department Care Team (Late st Contact Info) Description 07/31/2017 Procedure [facility], Ct Scan - [address] [address] Social History Tobacco Use Types Packs/Day Years Used Date Smoking Tobacco: Never Assessed Sex and Gender Information Value Date Recorded Sex Assigned at Not on file Legal Sex Male 9:46 PM EDT Gender Identity Not on file Sexual Orientation Not on file documented as of this encounter Plan of Treatment Not on file documented as of this encounter Visit Diagnoses Not on filedocumented in this encounter Additional Health Concerns Infection Onset Date Last Indicated Resolved Time CoV-Risk 10/04/2021 10/05/2021 10/06/2021 8:35 PM EST COVID-19 10/05/2021 10/05/2021 10/26/2021 1:22 AM EST documented as of this encounter Care Teams Awake Overnight Monitor Relationship Specialty Start Date End Date Pcp, Unknown PCP - General 07/31/17 08/13/17 Anibal Barrow MD [address] [place] [phone] [email or web address] PCP - General Internal Medicine 08/14/17 08/17/22 Daniel Yeager MD [address] [address] [email or web address] PCP - General Family Medicine 08/18/22 Anibal Barrow MD [address] [address] [email or web address] Insurance Assigned Provider 10/18/19 04/23/22 documented as of this encounter Additional Source Comments The information contained in this document represents components of the legal health record. It is not the complete legal health record.[facility]
--- OUTSIDE RECORDS SUMMARY | 2025-09-05 13:10 | XMS_ITS | Encounter Summary ---
Author Organization [facility] Address [address] [facility] [address] [place] [address] Phone Care Team Providers Care Sign Out Clerk Name Role Phone Pcp, Unknown Primary Care Provider Anibal Cross MD Primary Care Provider [phone] Anibal Barrow MD Unavailable [phone] Daniel Yeager MD Primary Care Provider [phone] Encounter Details Date Type Department Care Team (Late st Contact Info) Description 07/31/2017 Ancillary Orders Virtual Department [address] [place] [address] Moises Verdin MD [address] [place] [address] [email or web address] Tinnitus of left ear; Dizziness and giddiness Social History Tobacco Use Types Packs/Day Years Used Date Smoking Tobacco: Never Assessed Sex and Gender Information Value Date Recorded Sex Assigned at Not on file Legal Sex Male 9:46 PM EDT Gender Identity Not on file Sexual Orientation Not on file documented as of this encounter Plan of Treatment Not on file documented as of this encounter Results * CT ANGIO HEAD WITH AND WITHOUT CONTRAST (08/14/2017 12:35 PM EST) Anatomical Region Laterality Modality Neck Computed Tomogra phy 08/14/2017 12:3 0 PM EST Impressions 08/14/2017 12:43 PM EST Right-sided basal ganglia and thalamic calcifications with prominent draining vein on the right consistent with a developmental venous anomaly. Otherwise unremarkable evaluation of intracranial contents. The CTA of the neck is unremarkable. The CTA of [place] discloses findings consistent with a developmental venous anomaly as noted above. TOTAL CTDIvol: 200.60 mGy S/S: Dizziness, giddiness, tinnitus left ear, severe headaches, right basal ganglia developmental venous anomaly. POS -[id number] Narrative 08/14/2017 12:43 PM EST COMPARISON: None TECHNIQUE: Precontrast views were obtained in preparation for CT angiogram of the brain. Rapid intravenous contrast administration was then performed with multidetector CT obtained from the vertex to skull base. Rapid intravenous contrast administration was then performed with multidetector CT obtained from skull base to thoracic inlet. Multiplanar angiographic reformatted are evaluated on the workstation. FINDINGS: The unenhanced CAT scan of the brain obtained initially as part of the CTA of the neck and [place] discloses calcifications in the basal ganglia on the right including the putamen and globus pallidus as well as the thalamus and head of the caudate nucleus. No such calcifications are seen on the left. The periventricular system is of normal size and position. No extra-axial fluid collection or mass-effect is seen. No shift of midline structures is evident. No acute intracranial hemorrhage is seen. No acute infarct is noted. No significant mass-effect is seen. After contrast is given the evaluation of the vessels in the neck is unremarkable. No significant atherosclerotic plaquing or occlusive disease is seen. In the [place] the posterior circulation is notable for a dominant left vertebral artery. The right posterior cerebellar artery is fed via the anterior circulation. There is evidence of what appears to be a venous anomaly with a large draining vein on the right extending into the basal ganglia. The appearance is most consistent with a developmental venous anomaly. This corresponds well with the right-sided calcifications. The cerebellar tonsils are normally positioned. The sella turcica is unremarkable. The internal auditory canals are symmetric. There is normal aeration of the mastoid air cells. No cerebellopontine angle pathology is noted. Procedure Note Long King MD - 08/14/2017 COMPARISON: None TECHNIQUE: Precontrast views were obtained in preparation for CT angiogramof the brain. Rapid intravenous contrast administration was thenperformed with multidetector CT obtained from the vertex to skull base.Rapid intravenous contrast administration was then performed withmultidetector CT obtained from skull base to thoracic inlet. Multiplanarangiographic reformatted are evaluated on the workstation. FINDINGS: The unenhanced CAT scan of the brain obtained initially as part of the CTAof the neck and [place] discloses calcifications in the basalganglia on the right including the putamen and globus pallidus as well asthe thalamus and head of the caudate nucleus. No such calcifications areseen on the left. The periventricular system is of normal size and position. No extra-axialfluid collection or mass-effect is seen. No shift of midline structures isevident. No acute intracranial hemorrhage is seen. No acute infarct is noted. Nosignificant mass-effect is seen. After contrast is given the evaluation of the vessels in the neck isunremarkable. No significant atherosclerotic plaquing or occlusive diseaseis seen. In the [place] the posterior circulation is notable for adominant left vertebral artery. The right posterior cerebellar artery isfed via the anterior circulation. There is evidence of what appears to be a venous anomaly with a largedraining vein on the right extending into the basal ganglia. Theappearance is most consistent with a developmental venous anomaly. Thiscorresponds well with the right-sided calcifications. The cerebellar tonsils are normally positioned. The sella turcica isunremarkable. The internal auditory canals are symmetric. There is normal aeration ofthe mastoid air cells. No cerebellopontine angle pathology is noted. IMPRESSION: Right-sided basal ganglia and thalamic calcifications with prominentdraining vein on the right consistent with a developmental venousanomaly. Otherwise unremarkable evaluation of intracranial contents. The CTA of the neck is unremarkable. The CTA of [place] discloses findings consistent with adevelopmental venous anomaly as noted above. TOTAL CTDIvol: 200.60 mGy S/S: Dizziness, giddiness, tinnitus left ear, severe headaches, rightbasal ganglia developmental venous anomaly. POS -[id number] us Moises Verdin MD IMG CT HEAD/NECK Final R esult documented in this encounter Visit Diagnoses Diagnosis Tinnitus of left ear Dizziness and giddiness Tinnitus of left ear Dizziness and giddiness documented in this encounter Additional Health Concerns Infection Onset Date Last Indicated Resolved Time CoV-Risk 10/04/2021 10/05/2021 10/06/2021 8:35 PM EST COVID-19 10/05/2021 10/05/2021 10/26/2021 1:22 AM EST documented as of this encounter Care Teams Sign Out Clerk Relationship Specialty Start Date End Date Pcp, Unknown PCP - General 07/31/17 08/13/17 Anibal Barrow MD [address] [address] [email or web address] by [email or web address] PCP - General Internal Medicine 08/14/17 08/17/22 Daniel Yeager MD [address] [place] [id number] [email or web address] PCP - General Family Medicine 08/18/22 Anibal Barrow MD [address] [place] [address] [email or web address] Insurance Assigned Provider 10/18/19 04/23/22 documented as of this encounter Additional Source Comments The information contained in this document represents components of the legal health record. It is not the complete legal health record.[facility]
--- OUTSIDE RECORDS SUMMARY | 2025-09-05 13:10 | XMS_ITS | Encounter Summary ---
Author Organization [facility] Address [address] [facility] [address] [place] [address] Phone Care Team Providers Care Instructional Supervisor Name Role Phone Anibal Barrow MD Primary Care Provider [phone] Anibal Barrow MD Unavailable [phone] Daniel Yeager MD Primary Care Provider [phone] Encounter Details Date Type Department Care Team (Late st Contact Info) Description 01/18/2021 Procedure Pass [facility] Endoscopy Admitting Dept Virtual Department [address] [place] [address] Social History Tobacco Use Types Packs/Day Years Used Date Smoking Tobacco: Former Cigarettes Q uit: 1999 Smokeless Tobacco: Never Alcohol Use Standard Drinks/Week Comments Yes 0 (1 standard drink = 0.6 oz pur e alcohol) 1-2 beers per month Sex and Gender Information Value Date Recorded [...] COVID-19 10/05/2021 10/05/2021 10/26/2021 1:22 AM EST Assessment Noted Time PHQ-2 Depression Total Score: 0 05/12/20 10:46 AM EDT documented as of this encounter Care Teams Instructional Supervisor Relationship Specialty Start Date End Date Anibal Barrow MD [address] [address] PCP - General Internal Medicine 08/14/17 08/17/22 Daniel Yeager MD [address] [address] [email or web address] PCP - General Family Medicine 08/18/22 Anibal Barrow MD [address] [address] [email or web address] Insurance Assigned Provider 10/18/19 04/23/22 documented as of this encounter Additional Source Comments The information contained in this document represents components of the legal health record. It is not the complete legal health record.[facility]
--- OUTSIDE RECORDS SUMMARY | 2025-09-05 13:10 | XMS_ITS | Clinical Summary ---
Author Organization [facility] Address [address] [facility] [address] [place] [phone] Phone Care Team Providers Care Wrap Turner Name Role Phone Daniel Yeager MD Primary Care Provider [phone] Allergies No known active allergies Medications ibuprofen (ADVIL,MOTRIN) 200 MG tablet Take 400 mg by mouth every 6 (six) hours as needed for pain (specific location in comments). Active aspirin 81 MG EC tablet Take 81 mg by mouth daily. Active indomethacin (INDOCIN SR) 75 mg CR capsule Take 1 capsule (75 mg total) by mouth daily as needed (back pain). 10 capsule 1 1 Active sildenafiL (VIAGRA) 50 mg tabletIndication s:Erectile dysfunction TAKE 1 TABLET BY MOUTH EVERY DAY NEEDED 4 tablet 1 Active Active Problems Problem Noted Date Diagnosed Date Anxiety 09/02/2021 Prediabetes 11/12/2019 Family history of diabetes mellitus in father Erectile dysfunction 10/14/2019 Ejaculatory disorder 10/14/2019 Migraine with aura 10/14/2019 Overview (10/14/2019): headaches accompanied by nausea but no vomiting Hyperlipidemia 10/14/2019 Adenomatous colon polyp 10/14/2019 Umbilical hernia 10/14/2019 Carotid atherosclerosis 09/21/2016 Overview (10/14/2019): minimal right carotid atherosclerosis on ultrasound Sleep apnea Overview (02/25/2021): Seen by Dr. Alexander in the past Immunizations Immunization Administration Dates Next Due COVID-19 (Pre-07/10) Pfizer Vaccine, mRNA, PF ,11/28/2020 Tdap 01/06/2012 Family History Medical History Relation Comments Coronary artery disease Father Deep vein thrombosis Father Diabetes mellitus Father Multiple myeloma Father Coronary artery disease Mother Lung cancer Mother smoker Stroke Mother Depression Sister Obesity Sister Drug abuse Son in the past Colon cancer Neg Hx Prostate cancer Neg Hx Relation Status Comments Father (Age 72) Mother (Age 69) stroke Sister Son Social History Tobacco Use Types Packs/Day Years Used Date Smoking Tobacco: Former Cigarettes Q uit: 1999 Smokeless Tobacco: Never Alcohol Use Standard Drinks/Week Comments Yes 0 (1 standard drink = 0.6 oz pur e alcohol) 1-2 beers per month Child or Family Care Answer Date Record ed Do you have problems with on e of the following making it difficult for you to work, study, or receive health care? I choose not to answer 02/25/2021 Education Answer Date Recorded Are you interested in more education? Not on mayte e 02/28/2023 Are you concerned about learning? Not on file 02/28/2023 No 02/28/2023 No 02/28/2023 Food Answer Date Recorded Within the past 6 months we worried whether our food would run out before we got money to buy more. I choose not to answer 02/25/2021 Within the past 6 months the food we bought just didn't last and we didn't have enough money to get more. I choose not to answer 02/25/2021 Residential Stability Answer Date Recor ded What is your housing situation today? I have yaz strickland 02/25/2021 How many times have you move d in the past 12 months? I choose not to answer 02/25/2021 06 Are you worried that in t he next 2 months, you may not have your own housing to live in? I choose not to answer 02/26/20 21 Paying for Meds Answer Date Recorded Do you have trouble paying for medicines? I gonzales nelson not to answer 02/25/2021 Paying Utility Bills Answer Date Record ed Do you have trouble paying y our heating or electricity bill? I choose not to answer 02/25/2021 Transportation Answer Date Recorded Has the lack of transportati on kept you from medical appointments or from getting medications? No 02/25/2021 Unemployment Answer Date Recorded Are you currently unemployed or working on a part-time or temporary basis, and looking for work? I choose not to answer 02/25/2021 Digital Access Answer Date Recorded No 02/13/2023 No 02/13/2023 Reliable internet access at home? Not on file 02/13/2023 Device with a working camera? Not on file Sex and Gender Information Value Date Recorded Sex Assigned at Not on file Legal Sex Male 9:46 PM EDT Gender Identity Not on file Sexual Orientation Not on file Last Filed Vital Signs Vital Sign Reading Time Taken Comments Blood Pressure 110/66 09/02/2021 11:44 AM EST right arm, regular cuff Pulse 89 09/02/2021 11:44 AM EST Temperature 36 C (96.8 F) 01/18/2021 8:00 AM EDT Respiratory Rate 17 01/18/2021 8:50 AM EDT Oxygen Saturation 98% 09/02/2021 11: 44 AM EST Inhaled Oxygen Concentration - - Weight 83.9 kg (185 lb) 10/04/2021 11:0 8 AM EST Height 172.5 cm (5' 7.91 ) 02/25/2021 1 :12 PM EDT Body Mass Index 28.2 02/25/2021 1:12 PM EDT Plan of Treatment Health Maintenance Due Date Last Done Comments SMOKING Hx and SMOKELESS TOBACCO SCREENING 1974 COLOGUARD 2006 FIT TEST 2006 FOBT 2006 SIGMOIDOSCOPY 2006 VIRTUAL COLONOSCOPY 2006 PNEUMOCOCCAL VACCINES (50+ years) (1 of 1 - PCV) 12/04/2011 ZOSTER VACCINES (1 of 2) 12/04/2011 Adult Td,Tdap Booster 01/05/2022 01/06/2012 DEPRESSION SCREENING 02/25/2022 02/25/2021 LIPID PANEL 08/25/2022 08/25/2021, 1204/2021, 09/22/2020, Additional history exists INFLUENZA VACCINE (#1) 2025 COVID-19 VACCINE ( season) 2025 01/13/2021, 11/28/2020 COLONOSCOPY 01/18/2026 01/18/2021 COLORECTAL CANCER SCREENING 01/18/2026 RSV VACCINE (1 - 1-dose 75+ series) 2036 HEPATITIS C SCREENING Completed 10/24/2019, 020 HIV ONE-TIME SCREENING (18-65 YEARS) Completed 10/24/2019 HEPATITIS A VACCINES Aged Out No long er eligible based on patient's age to complete this topic HIB VACCINES Aged Out No longer eligi ble based on patient's age to complete this topic MENINGOCOCCAL VACCINES (ACWY) Aged Out No longer eligible based on patient's age to complete this topic MENINGOCOCCAL VACCINES (B) Aged Out N o longer eligible based on patient's age to complete this topic Medical Devices Not on file Procedures Procedure Name Priority Date/Time Associated Diagnosis Comments LIPID PANEL Routine 08/25/2021 7:08 AM EST Routine general medical examination at a health care facility Hyperlipidemia, unspecified hyperlipidemia type ENDOSCOPY, COLON 01/18/2021 8:10 AM EDT HEPATITIS C ANTIBODY, QUALITATIVE Routine 10/24/2019 8:49 AM EST Routine general medical examination at a health care facility from Last 3 Months or Most Recently Relevant to Health Maintenance Results * (ABNORMAL) Lipid panel (08/25/2021 7:08 AM EST) HDL 70 mg/dL [facility] Comment: Interpretation <40 mg/dL: Low HDL cholesterol (major risk factor for CHD) Greater than or equal to 60 mg/dL: High HDL cholesterol ( negative risk factor for CHD) HDL - cholesterol is affected by a number of factors, e.g. smoking, excerise, hormones, sex and age. CHOLESTEROL 246(H) 0 - 240 mg/dL [facility] TRIGLYCERIDES 84 30 - 160 mg/dL [facility] LDL 159(H) 50 - 129 mg/dL [facility] Comment: LDL levels in terms of risk for coronary heart disease: <100 mg/dL: Optimal 100-129 mg/dL: Near or above optimal 130-159 mg/dL: Borderline high 160-189 mg/dL: High >190 mg/dL: Very High CARDIAC RISK RATIO 3.5 3.4 - 5.0 C [facility] Blood 08/25/2021 7:08 AM EST 08/25/2021 7:12 AM EST us Tammy Calabrese MD LAB BLOOD BKR ORDERABLES F inal Result [facility] [address] [place] [address] * ENDOSCOPY, COLON (01/18/2021 8:10 AM EDT) Narrative Transcriptions Tammy Frankel MD - 01/18/2021 8:10 AM EDT Patient Name: James Nye Attending MD:: TAMMY FRANKEL MD Procedure Date: 01/18/2021 8:10 AM Date of : 1960 Age: 60 Admit Type: Outpatient Gender: Male Room: [facility] Referring MD: TAMMY CALABRESE MD Exam Type: Colonoscopy Indications: Surveillance: Personal history of adenomatous polypson last colonoscopy > 5 years ago, Last colonoscopy:March 2012 Medications: Monitored Anesthesia Care Procedure: Informed consent was obtained from the patient after discussion of the indications, limitations, alternatives, benefits, and risks of the procedure. Risks specifically discussed include but are not limited to medication reactions, missed lesions, bleeding, perforation, or the need for emergentsurgery. Throughout the procedure, the patient's bloodpressure, pulse, end-tidal CO2, and oxygen saturations were monitored continuously. The Olympus adult variable colonoscope [id number] #4was introduced through the anus and advanced to thececum, identified by the appendiceal orifice, ileocecalvalve and palpation. The colonoscopy was performed without difficulty. The patient tolerated the procedurewell. The quality of the bowel preparation was good. Complications: No immediate complications. Estimated blood loss: Minimal. Findings: The perianal and digital rectal examinations were normal. Pertinent negatives include normal sphincter tone. A 3 mm polyp was found in the ascending colon at 75cm proximal to the anus. The polyp was sessile. Thepolyp was removed with a piecemeal technique using a cold biopsy forceps. Resection and retrieval werecomplete. Estimated blood loss was minimal. Retroflexion in the right colon was performed. Impression: - One 3 mm polyp in the ascending colon at 75 cm proximal to the anus, removed piecemeal using a cold biopsy forceps. Resected and retrieved. Recommendation: - I will send results of your biopsy to you and your referring physician or provider. If you do notreceive notification within 3 weeks, please call ouroffice. - Repeat colonoscopy in 5 years for surveillancebased on pathology results. TAMMY FRANKEL MD 01/18/2021 8:39:06 AM This report has been signed electronically. Number of Addenda: 0 Note Initiated On: 01/18/2021 8:10 AM Procedure Code(s): --- Professional --- 27999, Colonoscopy, flexible; with biopsy, single or multiple --- Technical --- 94480, Colonoscopy, flexible; with biopsy, single or multiple Diagnosis Code(s): --- Professional --- Z86.010, Personal history of colonic polyps D12.2, Benign neoplasm of ascending colon --- Technical --- Z86.010, Personal history of colonic polyps D12.2, Benign neoplasm of ascending colon CPT copyright 2018 [employer]. All rights reserved. The codes documented in this report are preliminary and upon sight effects specialist reviewmay be revised to meet current compliance requirements. Procedure Date: 01/18/2021 8:10:[address] [place] [id number] us Tammy Calabrese MD GI PROCEDURE ORDERABLES Fi nal Result * Hepatitis C antibody, qualitative (10/24/2019 8:49 AM EST) HCV NON-REACTIV E NON-REACTI VE [facility] Blood 10/24/2019 8:49 AM EST 10/24/2019 8:57 AM EST us Tammy Calabrese MD LAB BLOOD BKR ORDERABLES F inal Result [address] [address] from Last 3 Months or Most Recently Relevant to Health Maintenance [facility] POS Care Teams Wrap Turner Relationship Specialty Start Date End Date Daniel Yeager MD [email or web address] PCP - General Family Medicine 08/18/22 Additional Source Comments The information contained in this document represents components of the legal health record. It is not the complete legal health record.[facility]
[2025-09-05 15:56] LABS: MANUAL DIFF FLAG NO
[2025-09-05 16:03] LABS: Hematocrit 47.0 % (42.0-52.0); Hemoglobin 15.7 g/dl (14.0-18.0); Imm Gran Abs Auto 0.02 X10*3/uL (0.00-0.03); Imm Gran Pct Auto 0.5 % (0.0-0.4); Lymphocytes Absolute Auto 1.1 X10*3/uL (1.2-4.9); Mean Corpuscular HGB Conc 33.4 g/dl (31.0-36.0); Mean Corpuscular Hemoglobin 31.0 pg (27.0-33.0); Mean Corpuscular Volume 92.9 fL (80.0-98.0); NRBC Abs Auto 0.000 X10*3/uL (0.0-0.012); NRBC Pct Auto 0.0 /100WBC (0.0-0.2); Platelet Count 254 X10*3/uL (160-400); Red Blood Count 5.06 X10*6/uL (4.60-5.80); White Blood Count 4.2 X10*3/uL (4.8-10.8)
[2025-09-05 16:07] LABS: Appearance Urine Clear; Glucose Urine UA Negative (Negative); PH 5.5 (5.0-9.0); Specific Gravity - Urine 1.020 (1.005-1.025)
[2025-09-05 17:33] LABS: Alanine Aminotransferase 17 U/L (0-40); Albumin Level 4.2 g/dL (3.5-5.0); Alkaline Phosphatase 61 U/L (39-117); Anion Gap 11 (12-20); Aspartate Amino Transferase 23 U/L (5-37); Blood Urea Nitrogen 18 mg/dL (9-16); Calcium 9.0 mg/dL (8.4-10.2); Carbon Dioxide 22 mmol/L (22-29); Chloride 112 mmol/L (96-108); Cholesterol 252 mg/dL (<200); Estimated Glomerular Filt Rate > 60; HDL Cholesterol 65 mg/dL (>40); Microalbum/Creatinine Ratio Ur 12.6 ug/mg cr (<30); Potassium 4.4 mmol/L (3.3-5.1); Sodium 141 mmol/L (135-145); Total Protein 7.0 g/dL (6.5-8.0); Triglycerides 95 mg/dL (<150)
== END 2025-09-05 10:18 | disposition home or self-care (01) ==
LOC: HO.WFDLDS 10:17
PROVIDERS: PCP Family Medicine; Visit Provider Family Medicine
DX: Z00.00 Encounter for general adult medical examination without abnormal findings (principal); I10 Essential (primary) hypertension; I65.29 Occlusion and stenosis of unspecified carotid artery; H43.811 Vitreous degeneration, right eye; R73.03 Prediabetes
CPT/HCPCS: 36415; 80053; 80061; 81003; 82043; 82570; 83036; 85025

== ENCOUNTER 2025-09-05 10:17 | Outpatient (AMB) | payer BC, SELFPAY ==
--- NOTE | 2025-09-05 10:33 | MHC.PC.OV ---
Vital Signs 09/05/25 10:35 Height 5 ft 9 in Weight 202 lb 8 oz BMI 29.9 BP 120/82 Blood Pressure Location Rt brachial Position Sitting Respiration 14 Pulse 84 Pulse Source Pulse Oximeter Temp 97.7 F Temp Source Temporal Artery Scan Pulse Oximetry (%) 95 Oxygen Delivery Method Room Air Intake Visit Reasons: ER [facility] Intake Note: James presents in the office today for an ER Follow up. Leather Carver Required: No Allergies No Known Allergies Allergy (Verified 09/05/25 10:34) Medication List - Last Reconciled 09/05/25 by Perez Sharif MD indomethacin 50 mg PO BID PRN 30 days naproxen 500 mg PO BID PRN 30 days pravastatin 20 mg PO BEDTIME 90 days sildenafil 100 mg PO DAILY PRN 30 days terbinafine HCl 1% (Antifungal (terbinafine)) 1 appl topical BID 14 days Tobacco use date assessed: 09/05/25 Dental Screening Dental Screen Date: 09/05/25 Did you have a dental visit in the last 12 months?: Yes Did you have a dental problem in the last 6 months where you did not have access to dental care?: No Was dental information given to patient?: Patient has dentist HPI ER [facility] HPI Details 64 y/o male presents today to f/u ED visit 08/28/25 for vision changes. Had noted R eye flashing in the periphery. Denies vision loss, blurry vision, double vision or significant pain/trauma. Neurologic exam was reassuring. Ultrasound showed likely vitreous detachment. Hx of prediabetes. A1c today 5.5%. 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 Hemant Avilez, Earlene Thorne, Bhargav Banegas and colleagues, with an educational don from [employer]. Review of Systems Const Denies chills, Denies fatigue, Denies fever(s), Denies headache(s) and Denies weakness ENT Denies dizziness and Denies headache(s) Card Denies dyspnea Resp Denies cough, Denies dyspnea, Denies wheezing and Denies other (shortness of breath) Musc Denies numbness and Denies tingling Neuro Denies dizziness, Denies headache(s), Denies numbness, Denies tingling and Denies weakness Psych Denies anxiety and Denies depression Endo Denies fatigue Aller/Immun Denies wheezing Physical exam (Primary Care) Vital Signs: Last Vital Signs Temp 97.7 F 09/05/25 10:35 Pulse 84 09/05/25 10:35 Resp 14 09/05/25 10:35 BP 120/82 09/05/25 10:35 Pulse Ox 95 09/05/25 10:35 Oxygen Delivery Method Room Air 09/05/25 10:35 BMI result Body Mass Index 29.9 Tobacco/Smoking Status: Tobacco use Status Tobacco use date assessed 09/05/25 09/05/25 10:39 Patient Tobacco Use Status Never used Tobacco 09/05/25 10:39 e-Cigarette/Vaping Use Never Used 09/05/25 10:39 Thrive Assessment: Date of Thrive Assessment Date Thrive assessed 04/18/25 09/05/25 10:39 Const General: well developed; No acute distress Nutritional Appearance: well nourished Orientation/consciousness: patient oriented x3 HENMT Head: Yes normocephalic and Yes atraumatic Eyes General: appearance normal, both eyes and all related structures Pupils: Equal, round and reactive pupils present EOM: EOMs intact bilaterally Resp Effort & Inspection: normal respiratory effort Neuro General: patient oriented x3 and gait normal Cranial nerves: Yes Equal, round and reactive pupils present Psych Affect: normal affect Results AMB Hemoglobin A1c AMB Hemoglobin A1c 5.5 % Last Edit by Tamara Junior CMA on 09/05/25 10:48 Results Reviewed Results Reviewed: Laboratory Last Values Hgb A1c (Clinic) 5.5 % (4.0-6.0) 09/05/25 10:41 Coding Level of Care Code Est Pt Level 3 (69676) Diagnoses Vitreous detachment of right eye H43.811 Pre-diabetes R73.03 Assessment & Plan Assessment & Plan (1) Vitreous detachment of right eye: Code(s): H43.811 - Vitreous degeneration, right eye Category: Medical Plan: Had made referrals for patient urgently and he was seen by Dr. Goldsmith ([facility]). Current estimation is that he does not need surgery. Close follow-up was scheduled and he has an upcoming appointment with her to re-evaluate. He notes that he still has symptoms of scotoma and slight visual defect. Not driving at night. Sxs have not worsened. Follow-up with eyeglass frames inspector. Call eyeglass frames inspector urgently if worsening of symptoms or any new, concerning symptoms. (2) Pre-diabetes: Code(s): R73.03 - Prediabetes Category: Medical Plan: A1c at top of normal range Continue working on diet low in sugars and starches Orders: Orders Lipid Panel Today I65.29 - Occlusion and stenosis of unspecified carotid artery, Z00.00 - Encounter for general adult medical examination without abnormal findings Comprehensive [place]. Panel Fast Today I65.29 - Occlusion and stenosis of unspecified carotid artery, Z00.00 - Encounter for general adult medical examination without abnormal findings Microalbumin, Random (w Creat) Today I10 - Essential (primary) hypertension, Z00.00 - Encounter for general adult medical examination without abnormal findings AMB Hemoglobin A1c Today R73.03 - Prediabetes Complete Blood Count Auto Diff Today Z00.00 - Encounter for general adult medical examination without abnormal findings UA CC w/rflx Micro + Cult Today Z00.00 - Encounter for general adult medical examination without abnormal findings Medications: Changed From sildenafil administer 30 minutes to 4 hours before activity 100 mg PO DAILY 30 days PRN 6 tabs 2RF sexual activity To sildenafil administer 30 minutes to 4 hours before activity 100 mg PO DAILY PRN 20 tabs 2RF sexual activity 90 days
[2025-09-05 10:35] VITALS: BP 120/82; PULSE 84; RESP 14; TEMP 36.5; O2SAT 95; BMI 29.9
--- OUTSIDE RECORDS SUMMARY | 2025-09-05 11:41 | XMS_ITS | Clinical Summary ---
Author Organization [employer] Address [address] [facility] 7[address] [place] [address] Care Team Providers Care Cargo Service Supervisor Name Role Phone Perez Sharif Primary Care Provider [phone] Allergies No known active allergies Medications indomethacin [...] FIT 1961 FOBT 1961 HIV Screening 1961 Lipid Panel 1961 SDOH Screening 1961 Sigmoidoscopy 1961 Disability Screening 1961 Alcohol/Substance Use Screening 1973 Hepatitis C Screening 12/04/1979 Pneumococcal Vaccine: 50+ Years (1 of 1 - PCV) 12/04/2011 Zoster Vaccines (1 of 2) 12/04/2011 Tobacco Screening 02/18/2025 02/19/2024 COVID-19 Vaccine (3 - 2024-2 6 season) 2025 01/13/2021, 11/28/2020 Influenza Vaccine (#1) 2025 DTaP/Tdap/Td Vaccines (3 - T d or Tdap) 04/18/2035 04/18/2025, 01/06/2012 RSV Patients and Patients Aged 60 years or older (1 - 1-dose 75+ series) 2036 HIB Vaccines Aged Out No longer eligi [...] this topic Insurance BS HMO Care Teams Cargo Service Supervisor Relationship Specialty Start Date End Date Perez Sharif [address] [place], [place] [id number] PCP - General 02/19/24
== END 2025-09-05 11:22 | disposition home or self-care (01) ==
LOC: HO.HMCFM 10:18
PROVIDERS: PCP Family Medicine; Visit Provider Family Medicine
DX: H43.811 Vitreous degeneration, right eye (principal); R73.03 Prediabetes